=== PATIENT | female | born 1980 | race Hispanic/Latino ===

== ENCOUNTER 2017-06-22 14:44 | Outpatient (CLI) | payer MEDICARE ==
--- NOTE | 2017-06-22 16:32 | Mammography Report ---
BILATERAL DIGITAL DIAGNOSTIC MAMMOGRAM with CAD and BILATERAL BREAST ULTRASOUND: 06/22/17 CLINICAL: Bilateral breast lumps. COMPARISON:None. These are Baseline studies FINDINGS: The examination was performed with the patient in a wheelchair since she cannot stand. The breasts are mostly fatty with a few bilateral upper outer residual fibroglandular densities. An oval 1.6 x 0.8 cm circumscribed right inferior asymmetry.No mass, architectural distortion or suspicious calcifications . No skin thickening and no suspicious lymph nodes. Ultrasound of the lower right breast was performed and demonstrated normal fatty and fibroglandular structures except for a single benign cyst at 9 o'clock 7 cm from the nipple. It measures 0.9 x 0.3 x 0.8 cm and appears to correlate with the mammographic asymmetry. No mass or shadowing. No skin thickening. Ultrasound of the lower left breast was performed and demonstrated normal fatty and fibroglandular structures. No mass, cyst or shadowing. No skin thickening. Examination of the breasts reveals numerous bilateral raised and flat skin lesions of the lower breasts. The largest measure a centimeter or slightly greater and at least one on the left has a prominent central pore. No inflammatory changes are observed. IMPRESSION: Numerous bilateral benign skin lesions and no suspicious findings by mammography or ultrasound. A benign right breast cyst at 9 o'clock. 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 ACR BI-RADS MAMMOGRAPHIC CODES: 0 = Needs additional imaging evaluation; 1 = Negative; 2 = Benign; 3 = Probably benign; 4 = Suspicious; 5 = Malignant; 6 = Known biopsy-proven malignancy COMMENT: 1. Dense breast tissue, i.e., adenosis, fibrocystic changes, etc., may obscure an underlying neoplasm. 2. Approximately 10% of cancers are not detected with mammography. 3. A negative mammography report should not delay biopsy if a clinically suspicious mass is present. COMMENT: Patient follow-up letters are generated by our [employer] application.
== END 2017-06-22 14:45 | disposition home or self-care (01) ==
LOC: SPVWC 14:44
PROVIDERS: ATTEND Obstetrics & Gynecology
DX: N60.01 Solitary cyst of right breast (principal)
CPT/HCPCS: 77066

== ENCOUNTER 2020-02-07 13:25 | Outpatient (CLI) | payer MEDICARE ==
--- NOTE | 2020-02-10 09:13 | Mammography Report ---
DIGITAL SCREENING MAMMOGRAM WITH CAD, 02/07/2020 CLINICAL INFORMATION / INDICATION: Routine screening mammography. TECHNIQUE: Digital bilateral 2D mammography was obtained in the craniocaudal and mediolateral obliqu e projections. This examination was interpreted with the benefit of Computer-Aided Detection analysis . COMPARISON: 06/22/2017 FINDINGS: Breast Density: There are scattered areas of fibroglandular density. No dominant mass, suspicious calcifications, or architectural distortion in either breast. IMPRESSION: No mammographic evidence of malignancy. Follow up recommendation: Routine yearly BI-RADS Category 1: Negative. A "normal" or negative report should not discourage follow up or biopsy of a clinically significant f inding. A written summary of these findings will be mailed to the patient. The patient will be entered into a mammography reporting system which will generate a reminder letter for the patient's next appointmen t at the appropriate interval. The [employer] recommends yearly mammograms starting at age 40 and continuing as l augustine as a woman is in good health. Breast MRI is recommended for women with an approximate 20-25% or greater lifetime risk of breast cancer, including women with a strong family history of breast or ova moraima cancer or who have been treated for Hodgkin's disease. Signer Name: Reji Lynn MD Signed: 02/10/2020 9:08 AM Workstation Name: [employer]
== END 2020-02-07 13:26 | disposition home or self-care (01) ==
LOC: SPVWC 13:25
PROVIDERS: ATTEND Obstetrics & Gynecology
DX: Z12.31 Encounter for screening mammogram for malignant neoplasm of breast (principal); N64.89 Other specified disorders of breast
CPT/HCPCS: 77067

== ENCOUNTER 2021-02-08 15:03 | Outpatient (CLI) | payer MEDICARE ==
--- NOTE | 2021-02-08 17:56 | Mammography Report ---
DIGITAL SCREENING MAMMOGRAM WITH CAD, 02/08/2021 CLINICAL INFORMATION / INDICATION: Routine screening mammography. SCREENING MAMMO Z12.31 TECHNIQUE: Digital bilateral 2D mammography was obtained in the craniocaudal and mediolateral obliqu e projections. This examination was interpreted with the benefit of Computer-Aided Detection analysis . COMPARISON: 06/22/2017 and 02/07/2020. FINDINGS: The study is suboptimal due to the patient's inability to cooperate with positioning. Breast Density: There are scattered areas of fibroglandular density. No dominant mass, suspicious calcifications, or architectural distortion in either breast. Benign-appearing nodularity bilaterally is stable. A few benign-appearing calcifications in the left breast are also unchanged. IMPRESSION: No mammographic evidence of malignancy. Follow up recommendation: Routine yearly BI-RADS Category 2: Benign. A "normal" or negative report should not discourage follow up or biopsy of a clinically significant f inding. A written summary of these findings will be mailed to the patient. The patient will be entered into a mammography reporting system which will generate a reminder letter for the patient's next appointmen t at the appropriate interval. The [employer] recommends yearly mammograms starting at age 40 and continuing as l augustine as a woman is in good health. Breast MRI is recommended for women with an approximate 20-25% or greater lifetime risk of breast cancer, including women with a strong family history of breast or ova moraima cancer or who have been treated for Hodgkin's disease. Signer Name: Ivan Maria MD Signed: 02/08/2021 5:51 PM Workstation Name: [email or web address]
== END 2021-02-08 15:04 | disposition home or self-care (01) ==
LOC: SPVWC 15:03
PROVIDERS: ATTEND Obstetrics & Gynecology
DX: Z12.31 Encounter for screening mammogram for malignant neoplasm of breast (principal)
CPT/HCPCS: 77067